=== PATIENT | female | born 1990 ===

== ENCOUNTER 2017-01-15 10:21 | Inpatient (IN) | payer MEDICAID ==
[2017-01-15] MEDS ORDERED: Sodium Chloride 0.9% 1,000 ML IV STA (11:34)
[2017-01-15] MEDS ORDERED: Piperacill/Tazo 4.5gm in NS 100 ML IVPB STA (15:15)
[2017-01-15] MEDS ORDERED: HYDROmorphone 0.5 mg/0.5 ml ISec IVP PRN (19:24)
[2017-01-15] MEDS ORDERED: Lactated Ringer's 1,000 ML IV SCH (19:24)
[2017-01-15] MEDS ORDERED: Oxycodone/Acetaminophen 5/325 mg Tab PO PRN (19:26)
--- NOTE | 2017-01-15 19:33 | PCM.SURG1 ---
Surgeon's Initial Post Op Note - Surgeon's Notes Surgeon: Dr. Richards Mine Car Dispatcher: Dr. Tirado PGY1 Type of Anesthesia: General Endo Pre-Operative Diagnosis: acute appendicitis Operative Findings: see dictation Post-Operative Diagnosis: same Operation Performed: laparoscopic appendectomy Specimen/Specimens Removed: appendix Estimated Blood Loss: EBL {In ML}: 10 Post-Op Condition: Good Date of Surgery/Procedure: 01/15/17 Time of Surgery/Procedure: 18:00
--- NOTE | 2017-01-15 22:43 | OP ---
PROCEDURE DATE: 01/15/2017 SURGEON: Dr. Richards. PASTEURIZING SUPERVISOR: Dr. Tirado. ANESTHESIA: General, Dr. Cui. PREOPERATIVE DIAGNOSIS: Acute appendicitis. POSTOPERATIVE DIAGNOSIS: Acute appendicitis. PROCEDURE: Laparoscopic appendectomy. DESCRIPTION OF OPERATION: With the patient in the supine position under adequate general anesthesia, the abdomen was prepped and draped in the usual sterile manner. Veress needle puncture was performe d at the umbilicus with insufflation to 15 cm water pressure of CO2 and a 10 mm laparoscopic trocar w as inserted via an infraumbilical incision. Under direct vision, 5 and 12 mm trocars were inserted v ia the left lower quadrant. The cecum was visualized and with manipulation of the cecum and the term inal ileum. The appendix was identified lying behind and adherent to the terminal ileum. The append ix was freed up, it was noted to be acutely inflamed. The appendix was divided close to the cecum us ing an Endo-VINICIO stapler and the mesoappendix was also divided with a second pass of the Endo-VINICIO stap ler with the area of the appendiceal artery being reinforced with the Hemoclips. The appendix was pl aced in a specimen retrieval bag and removed via the 12 mm port site. There was a small amount of sp illage of material from the appendix and the iliac fossa on the right side was irrigated and suctione d. The pneumoperitoneum was released and the trocars were removed. The umbilical and 12 mL port sit es were closed with fascial sutures of 0 Vicryl. All incisions were closed with 4-0 Monocryl subcuti cular sutures and Dermabond. Dry sterile dressings were applied. The patient tolerated the procedur e well and transferred to recovery room in stable condition. Estimated blood loss for the procedure was 10 mL. Mela Richards MD cc: 58 TT: 01/15/2017 22:43:24 jn
[2017-01-15 23:04] VITALS: RESP 20; O2SAT 94
[2017-01-15 23:08] VITALS: BMI 33.3
--- NOTE | 2017-01-15 23:28 | CT ---
PROCEDURE: CT Abdomen and Pelvis with contrast HISTORY: Abdominal pain COMPARISON: None. TECHNIQUE: Contrast dose: 100 cc of Omni 350 Radiation dose: Total exam DLP = 1166 mGy-cm. This CT exam was performed using one or more of the following dose reduction techniques: Automated exposure control, adjustment of the mA and/or kV according to patient size, and/or use of iterative reconstruction technique. FINDINGS: LOWER THORAX: Unremarkable. LIVER: Unremarkable. No gross lesion or ductal dilatation. GALLBLADDER AND BILE DUCTS: Gallbladder removed PANCREAS: Unremarkable. No gross lesion or ductal dilatation. SPLEEN: Unremarkable. ADRENALS: Unremarkable. No mass. KIDNEYS AND URETERS: Unremarkable. No hydronephrosis. No solid mass. VASCULATURE: Unremarkable. No aortic aneurysm. BOWEL: Unremarkable. No obstruction. No gross mural thickening. APPENDIX: There is evidence of acute appendicitis. The distal appendix is dilated measuring 11 mm in diameter. There is enhancement and thickening of the wall of the appendix. There is also an appendicolith. The findings are best visualized on images 55-60 in the coronal plane. There is some inflammation in the adjacent mesenteric fat. There is no evidence of abscess. Findings were discussed with Dr. Luke at 2:45 p.m. PERITONEUM: Small amount of free fluid in the pelvis. LYMPH NODES: Unremarkable. No enlarged lymph nodes. BLADDER: Unremarkable. REPRODUCTIVE: There is a thick-walled enhancing cyst in the left adnexa consistent with recent cyst rupture. Varicosities are seen on both sides of the pelvis left greater than right. BONES: No acute fracture. OTHER FINDINGS: None. IMPRESSION: Acute appendicitis
[2017-01-15] MEDS: Morphine 4 mg/ml ISec IVP PRN (23:38)
[2017-01-15] MEDS: Piperacillin/Tazobact 3.375 gm 100 ML IVPB SCH (23:38)
[2017-01-16] MEDS: Morphine 4 mg/ml ISec IVP PRN (04:23)
[2017-01-16] MEDS: Piperacillin/Tazobact 3.375 gm 100 ML IVPB SCH (05:36)
[2017-01-16 07:24] LABS: ADD MANUAL DIFF? NO
[2017-01-16 09:27] VITALS: BP 95/56; PULSE 114; TEMP 99.2
--- NOTE | 2017-01-16 10:12 | CP.PCM.DIS ---
Provider - Provider Date of Admission: 01/15/17 21:00 Attending physician: Mela Richards MD Primary care physician: Elenita Hernandez MD Time Spent in preparation of Discharge (in minutes): 15 Diagnosis - Discharge Diagnosis (1) Appendicitis Status: Acute Priority: High Hospital Course - Hospital Course Hospital Course: Pt is a 26F who presented to ED on 01/15/17 with acute onsent RLQ pain and leukocytosis. Pt had CT scan found to have appendicitis. Taken to OR for laparoscopic appendectomy. PT tolerated surgery well. Admitted overnight for observation and pain control. This morning pt is doing well, afebrile, VSS, tolerating regular diet. Denies N/V, F/C, SOB or constipation. She is passing flatus. Pt will be d/c home with Rx for pain control and follow up in 1 week Discharge Exam - Head Exam Head Exam: NORMOCEPHALIC - Eye Exam Eye Exam: Normal appearance. absent: Scleral icterus - Respiratory Exam Respiratory Exam: NORMAL BREATHING PATTERN. absent: Accessory Muscle Use, Respiratory Distress - Cardiovascular Exam Cardiovascular Exam: REGULAR RHYTHM. absent: Tachycardia - GI/Abdominal Exam GI & Abdominal Exam: Soft, Tenderness (post-surgical and appropriate). absent: Distended, Firm, Guarding, Hernia, Rigid Additional comments: incisions c/d/i - Neurological Exam Neurological exam: Alert, Oriented x3 - Psychiatric Exam Psychiatric exam: Normal Affect, Normal Mood - Skin Skin Exam: Normal Color, Warm Discharge Plan - Follow Up Plan Condition: GOOD Disposition: HOME/ ROUTINE Additional Instructions: f/u in clinic in 1 week, call thursday to make appointment OK to shower starting 01/17/17: use regular soap, do not scrub incisions aggressively Resume regular diet Referrals: Elenita Hernandez MD [Primary Care Provider] -
[2017-01-16 10:47] LABS: PH,URINE >=9.0 (4.7-8.0); URINE APPEARANCE CLEAR (CLEAR); URINE BILIRUBIN NEGATIVE (NEGATIVE); URINE BLOOD NEGATIVE (NEGATIVE); URINE COLOR YELLOW (YELLOW); URINE GLUCOSE (UA) NEGATIVE (NEGATIVE); URINE KETONE NEGATIVE (NEGATIVE); URINE LEUKOCYTE ESTERASE NEGATIVE Leu/uL (NEGATIVE); URINE PROTEIN TRACE mg/dL (<30 mg/dL)
[2017-01-16 10:49] LABS: URINE AMORPHOUS SEDIMENT FEW
[2017-01-16 12:52] LABS: BASO # 0.01 K/mm3 (0.0-2.0); BASO % 0.1 % (0.0-3.0); GRAN # 14.06 (1.4-6.5); GRAN % 81.9 % (50.0-68.0); HEMATOCRIT 35.9 % (36.0-48.0); LYMPH # 1.7 (1.2-3.4); MEAN CELL VOLUME 86.9 fL (80.0-105.0); MEAN CORPUSCULAR HEMOGLOBIN 29.3 pg (25.0-35.0); MEAN CORPUSCULAR HGB CONC 33.7 g/dl (31.0-37.0); MONO # 1.4 (0.1-0.6); PLATELET COUNT 248 10^3/uL (120.0-450.0); RED CELL DISTRIBUTION WIDTH 13.2 % (11.5-14.5); WHITE BLOOD COUNT 17.2 10^3/ul (4.5-11.0)
[2017-01-16 14:03] LABS: ALB/GLOB RATIO 1.2 (1.1-1.8); ALKALINE PHOSPHATASE 66 U/L (38-133); ALT/SGPT 31 U/L (7-56); AST/SGOT 20 U/L (15-39); BILIRUBIN,TOTAL 1.4 mg/dL (0.2-1.3); BLOOD UREA NITROGEN 8 mg/dL (7-21); CALCIUM 9.2 mg/dL (8.4-10.5); CARBON DIOXIDE 25 mmol/L (21-33); CHLORIDE 102 mmol/L (98-107); GFR AFRICAN-AMERICAN > 60; GLUCOSE,RANDOM 105 mg/dL (70-110); LIPASE 18 U/L (23-300); MAGNESIUM 1.9 mg/dL (1.7-2.2); PHOSPHOROUS 2.9 mg/dL (2.5-4.5); POTASSIUM 3.6 mmol/L (3.6-5.0); SODIUM 138 mmol/L (132-148); TOTAL PROTEIN 7.7 g/dL (5.8-8.3)
[2017-01-16 14:05] LABS: VENOUS BLOOD GAS BASE EXCESS -1.4 mmol/L (0.0-2.0); VENOUS BLOOD PH 7.33 (7.32-7.43)
== END 2017-01-16 14:11 | disposition home or self-care (01) | DRG 883 ==
LOC: ED 10:21 → SDS 16:45 → 5RSO 21:00
PROVIDERS: ADMIT Specialist; ATTEND Specialist
PROC: 0DTJ4ZZ Resection of Appendix, Percutaneous Endoscopic Approach (ICD-10-PCS; principal; 2017-01-15 15:00)
DX: K35.80 Unspecified acute appendicitis (principal); E03.9 Hypothyroidism, unspecified